=== PATIENT | male | born 1950 | race African-American/Black ===

== ENCOUNTER → 2016-03-04 | Outpatient (CLI) | payer BC ==
[~2016-03-04] MED LIST: ADULT LOW DOSE81 MG PO; ASPIRIN EC325 M1 PO; BYSTOLIC10 MG PO; CHLORTHALIDONE25 MG PO; COZAAR100 MG PO; CRESTOR; CRESTOR40 MG PO; HUMALOG100 UNIT/1; HYDROCODONE-APA1 TA1 PO; IMDUR 30 MG TAB30 M1 PO; LANTUS SUBQ; LOPRESSOR; METHOCARBAMOL500 M2 PO; OMEPRAZOLE40 MG PO; TOPROL XL50 MG PO; TRAMADOL 50 MG50 MG PO; ZOFRAN ODT4 MG PO
== END ==
LOC: CAT 07:41
DX: M51.37 Other intervertebral disc degeneration, lumbosacral region (principal); M51.47 Schmorl's nodes, lumbosacral region

== ENCOUNTER 2017-07-14 18:39 | Inpatient (IN) | payer BC ==
[~2017-07-14] VITALS: Ht 190.5 cm; Wt 98.9 kg
--- NOTE | ~2017-07-14 | 2DMMODE ---
[facility] [address] [place] [address] 2 D/M-MODE ECHOCARDIOGRAM Name: JOBLIZZY STARR Room #: 418-P [facility] IN M.R.#: [id number] Admission: 07/14/17 Attend Phys: Yonatan Tearn, Discharge: Date of : 54 Date of Service: 07/15/17 1151 Report #: [id number] THIS REPORT FOR: //name// APPROVED REPORT Study performed: 07/15/2017 10:27:36 EXAM: Comprehensive 2D, Doppler, and color-flow Echocardiogram Patient Location: Bedside Room #: [facility] Status: routine BSA: 2.19 HR: 72 bpm BP: 119/73 mmHg Other Information Study Quality: Adequate Indications CAD Syncope Chest Pain 2D Dimensions RVDd: 35.71 mm LVEF(%): 68.00 (>50%) IVSd: 10.37 (7-11mm) LVOT Diam: 20.03 (18-24mm) LVDd: 42.80 mm PWd: 9.80 (7-11mm) Ascending Ao: 26.87 (22-36mm) LVDs: 26.71 (25-40mm) Aortic Root: 26.57 mm IVC: 20.00 mm Crowell's LVEF: 68.00 % Volumes Left Atrial Volume (Systole) Single Plane 4CH: 43.41 mL Single Plane 2CH: 35.64 mL LA ESV Index: 19.00 mL/m2 Aortic Valve AoV Peak Kiran.: 1.94 m/s AO Peak Gr.: 15.08 mmHg LVOT Max P.12 mmHg LVOT Max V: 1.74 m/s CHAUNCEY Vmax: 2.82 cm2 Mitral Valve E/A Ratio: 0.7 [facility] [email or web address] [address] 2 D/M-MODE ECHOCARDIOGRAM Name: LIZZY KAISER Room #: 418-P [facility] IN ..#: [id number] Admission: 07/14/17 Attend Phys: Yonatan Teran, Discharge: Date of : 54 Date of Service: 07/15/17 1151 Report #: [id number] MV Decel. Time: 291.24 ms MV E Max Kiran.: 0.70 m/s MV A Kiran.: 0.94 m/s MV PHT: 84.46 ms IVRT: 107.27 ms Pulmonary Valve PV Peak Kiran.: 1.18 m/s PV Peak Gr.: 5.59 mmHg Pulmonary Vein P Vein S: 0.74 m/s P Vein A: 0.30 m/s P Vein D: 0.37 m/s P Vein A Dur.: 107.3 msec P Vein S/D Ratio: 2.00 Tricuspid Valve RAP Estimate: 5.00 mmHg Left Ventricle The left ventricle is normal size. There is normal LV segmental wall motion. There is normal left ventricular wall thickness. The left ventricular systolic function is normal. The left ventricular ejection fraction is within the normal range. LVEF is 65%. Mild diastolic dysfunction is present (impaired relaxation pattern). Right Ventricle The right ventricle is normal size. The right ventricular systolic function is normal. Atria The left atrium size is normal. The right atrium size is normal. Aortic Valve The aortic valve is normal in structure. No aortic regurgitation is present. There is no aortic valvular stenosis. Mitral Valve The mitral valve is normal in structure. There is no mitral valve regurgitation noted. No evidence of mitral valve stenosis. Tricuspid Valve The tricuspid valve is normal in structure. There is no tricuspid valve regurgitation noted. Unable to assess PA pressure. Pulmonic Valve [address] [address] 2 D/M-MODE ECHOCARDIOGRAM Name: JOBLIZZYHARRY Room #: 418-P [facility] IN [facility]#: [id number] Admission: 07/14/17 Attend Phys: Yonatan Teran, Discharge: Date of : 54 Date of Service: 07/15/17 1151 Report #: [id number] The pulmonary valve is normal in structure. There is no pulmonic valvular regurgitation. Great Vessels The aortic root is normal in size. IVC is normal in size and collapses >50% with inspiration. Pericardium There is no pericardial effusion. <Conclusion> The left ventricular systolic function is normal. There is normal LV segmental wall motion. LVEF is 65%. Mild diatolic dysfunction The aortic valve is normal in structure. No aortic regurgitation or stenosis The mitral valve is normal in structure. No mitral valve regurgitation noted. Pulmonary artery pressure could not be reliably ascertained There is no pericardial effusion. <ELECTRONICALLY SIGNED> By: Sabino Barker MD, FACC 07/15/17 1151 1151 1151 Sabino Barker MD, FACC /INF
--- NOTE | ~2017-07-14 | CATHLAB ---
[facility] [address] [place] [address] INVASIVE PROCEDURE REPORT Name: LIZZY KAISER Room #: 201-P ADM IN .R.#: [id number] Admission: 07/14/17 Attend Phys: Yonatan Teran, Discharge: Date of : 54 Date of Service: 07/15/17 1333 Report #: [id number] THIS REPORT FOR: //name// APPROVED REPORT Study performed: 07/15/2017 12:09:20 Patient Details Patient Status: In-Patient Room #: The patient is a 66 year-old male Event Personnel Sabino Barker Internist Medical Doctor Md, Falguni Velasquez, Jeanne Horton Penny, Wes RN Procedures Performed Art Access - R femoral artery* 22344 Initial Mod Sed Same Phys/QHP Gr5y [id number] 28513 Mod Sed Same Phys/QHP Ea 079571 Left Heart Cath w/or w/o Coronaries [id number] LHC FFR [id number] FFR Hemostasis w/ Mynx Indication Abnormal ECG, Non-STEMI (>6 hrs to = 12 hrs) Risk Factors Dysplipidemia , Hypertension, Diabetes Procedure Narrative The patient was brought urgently to the Cardiac Catheterization Laboratory and was prepped and draped in a sterile manner. The was infiltrated with 1% Lidocaine subcutaneous anesthesia. A PINNACLE 6FR Sheath #[id number] sheath was inserted into the RFA^. Coronary angiography was performed using coronary diagnostic catheters. The right coronary system was accessed and visualized with a JR 4 catheter. The left coronary system was accessed and visualized with a JL 4 catheter. The left ventricle was accessed and visualized with a Pigtail catheter. Left ventricular/Aortic Valve gradient assessed via catheter pullback. Left ventriculogram was performed in LOUISE projection. Closure device was deployed with a 6 Fr Mynx. The patient tolerated the procedure well and there were no complications associated with the procedure. There was no hematoma. Intraoperative Conscious Sedation Sedation start time: 12:07 Case end Time: 12:57 [facility] [address] [place] [address] INVASIVE PROCEDURE REPORT Name: LIZZY KAISER Room #: 201-P [facility] IN ..#: [id number] Admission: 07/14/17 Attend Phys: Yonatan Teran, Discharge: Date of : 54 Date of Service: 07/15/17 1333 Report #: [id number] Fentanyl 50 mcg Versed 1.5 mg Fluoro Time: 4.43 minutes Dose: DAP 7066.10 cGycm2 1189 mGy Contrast Type and Amount: Omnipaque 200 ml Coronary Angiography The patient's coronary anatomy is co- dominant. Diagnostic Cath Left Main 50% distal left main tapering LAD The ostium of the LAD exhibited a 90% stenosis. FFR without adenosine 0.84 Mid LAD with 75-80% stenosis, mild distal plaquing Circumflex 40-50% ostial circumflex stenosis. 50% proximal circumflex stenosis OM1 Small OM2 Small with mild scattered plaquing L PDA Mild plaquing Right Coronary Diffusely diseased and "thready" throughout its course Ramus Moderately large ramus branch with a proximal 75% stenosis Left Ventriculography The left ventricular ejection fraction is estimated to be 60-65%. Left ventricular wall motion abnormalities are not present. There is no mitral insufficiency. Hemodynamics The aortic pressure is 132/78 mmHg with a mean of 93 mmHg. The left ventricular pressure is 157/1 mmHg with a mean of mmHg. The left ventricular end diastolic pressure is 16 mmHg. Conclusion 1. Normal global and regional systolic function. EF 65% 2. LM distal 50% stenosis 3. Severe ostial and mid LAD disease (Osteal LAD FFR 0.84) 4. Moderate circumflex stenoses 5. Severe, diffusely diseased RCA Recommendations [facility] [address] [place] [address] INVASIVE PROCEDURE REPORT Name: LIZZY KAISER Room #: 201-P [facility] IN ..#: [id number] Admission: 07/14/17 Attend Phys: Yonatan Teran, Discharge: Date of : 54 Date of Service: 07/15/17 1333 Report #: [id number] Cardiac Rehabilitation Referral CABG <ELECTRONICALLY SIGNED> By: Sabino Barker MD, [facility] 07/15/17 1333 1333 133 Sabino Barker MD, FAC /INF
--- NOTE | ~2017-07-14 | HC ---
[facility] [place] [address] CONSULTATION Name: LIZZY KAISER Room #: 236-P [facility] IN M.R.#: [id number] Admission: 07/14/17 Attend Phys: Keven Patrick Discharge: Date of : 54 Report #: [id number] THIS REPORT FOR: //name// CC: Ramses Teran REASON FOR CONSULTATION: Chest and arm pain, history of syncope. HISTORY OF PRESENT ILLNESS: The patient is a 66-year-old gentleman with history of longstanding diabetes. He has known coronary disease by angiography in November 2012 with chronic occlusion of the distal right coronary with collateralization and mild to moderate disease in the left system including an approximately distal 30% left main stenosis. He had been out of town in [place] working most of the week. Yesterday he had nothing to eat or drink most of the day. I got home and had small Fátima and something to eat. He remembered not taking his medicines which he then took last evening, which included losartan, Imdur and 10 mg of Bystolic. About an hour or so after this, he became very lightheaded and syncopal. Paramedics were summoned and initially his blood pressure was okay, although in the ambulance to the hospital, his blood pressure dropped into the 40s and he had recurrent syncope. He has had 5 or 6 syncopal episodes in the past, each were similar to this. Prior to the syncopal episode, he developed left arm achiness. He has had a terrible time trying to decide or know whether this arm pain is related to his severe back pain and degenerative disk disease or whether this was angina. He has had the same symptom while walking his dog and relieved by rest. He denies heart failure symptoms including orthopnea, paroxysmal nocturnal dyspnea, or lower extremity edema. No history of palpitations. ALLERGIES: He has a possible allergy to IODINE, although this is not entirely clear. MEDICATIONS: Include omeprazole, tramadol, Bystolic 10 mg daily, insulin 70 units at night, rosuvastatin 40 mg daily, losartan 100 mg daily, Imdur 30 mg daily and chlorthalidone 25 mg daily. PAST MEDICAL HISTORY AND MEDICAL RECORDS: Include history of hypertension, dyslipidemia, diabetes, moderate coronary artery disease. SOCIAL HISTORY: He is . 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 FAMILY HISTORY: Notable for a mother with coronary artery disease. REVIEW OF SYSTEMS: All systems negative except as that noted above. PHYSICAL EXAMINATION: GENERAL: Reveals a pleasant [place] [address] CONSULTATION Name: LIZZY KAISER Room #: 236-P [facility] IN M.R.#: [id number] Admission: 07/14/17 Attend Phys: Keven Patrick Discharge: Date of : 54 Report #: [id number] VITAL SIGNS: Blood pressure is 119/73, heart rate is 79 and regular. He is afebrile. HEENT: There are neither xanthelasma, subcutaneous xanthomata, oral mucosal or digital cyanosis or kyphoscoliosis present. CHEST: Clear to auscultation and percussion. CARDIOVASCULAR: Regular rate and rhythm with normal S1, S2. No murmurs, rubs. ABDOMEN: Soft and nontender. EXTREMITIES: Without cyanosis, clubbing or edema. Radial pulses are 2+. NEUROLOGIC: He is alert with a nonfocal exam. LABORATORY DATA: Sodium is 139, potassium 3.8, creatinine 1.2, troponin 0.13, LDL 97. Tox screen notable for marijuana. White count 9.0, hemoglobin 13, hematocrit 41, platelet count 225. CT angiography of the chest demonstrated no pulmonary emboli. Head CT unremarkable. Chest x-ray normal. EKG, sinus rhythm with nonspecific T-wave abnormality. IMPRESSION: 1. Syncope, likely multifactorial related to hypotensive effects of medications, alcohol use and being mildly volume depleted from being n.p.o. most of the day. 2. Left arm pain, possibly angina. 3. Diabetes. 4. Hypertension. 5. Moderate coronary disease by remote angiography in 2012. 6. Dyslipidemia. 7. Prior tobacco dependency. RECOMMENDATIONS: 1. Continued aggressive risk factor modification. 2. Maintain hydration status. 3. Stress testing versus coronary angiography. My suspicion is that his left arm pain is related to angina, possibly from progression of his underlying coronary disease. After a thorough discussion of the procedure, its risks and alternatives and after answering his questions, he is agreeable to proceeding. <ELECTRONICALLY SIGNED> By: Sabino Barker MD, [facility] 07/19/17 0800 1032 1447 Sabino Barker MD, FACC /nt
--- NOTE | ~2017-07-14 | EKG ---
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: YULISSA : 1950 Requested By: Keven Patrick Order Number: [id number] MD: Sabino Barker Measurements Intervals [place] Rate: 78 P: 29 PA: 141 QRS: 6 QRSD: 78 T: 54 QT: 388 QTc: 442 Interpretive Statements Sinus rhythm Abnormal R-wave progression, early transition Minimal ST elevation, consider pericarditis Compared to ECG 07/18/2017 15:56:[address] elevation is now present Electronically Signed On 07-19-2017 7:53:24 CDT by Sabino Barker [email or web address] <ELECTRONICALLY SIGNED> By: Sabino Barker MD, [facility] 07/19/17 0753 0611 0611 Sabino Barker MD, [facility] /EPI
--- NOTE | ~2017-07-14 | HC ---
[facility] [place] [address] CONSULTATION Name: LIZZY KAISER Room #: 201-P [facility] IN M.R.#: [id number] Admission: 07/14/17 Attend Phys: Yonatan Teran MD Discharge: Date of : 54 Report #: [id number] THIS REPORT FOR: //name// CC: Ramses Teran DATE OF SERVICE: 07/16/2017 REASON FOR CONSULTATION: I am asked to see this patient at the request of Dr. Barker for multivessel coronary artery disease and left main disease for evaluation for coronary artery bypass grafting. HISTORY OF PRESENT ILLNESS: The patient is a 66-year-old male who has presented to the Emergency Room after experiencing left-sided chest pain radiating to his jaw and to his left arm. He has had multiple episodes of this in the recent past. His symptoms have been associated with diaphoresis, nausea and headache. He presented to the Emergency Room and was found to have an abnormal EKG, slight elevation in his cardiac enzymes consistent with non-ST segment elevation CT. Further evaluation with echocardiography demonstrated normal LV systolic function and no valvular pathology. Left heart catheterization demonstrated important distal left main coronary artery disease as well as multivessel disease. I am asked to see this patient and consider coronary artery bypass grafting. PAST MEDICAL HISTORY: 1. Hypertension. 2. Diabetes mellitus, insulin-dependent. 3. Hypercholesterolemia. CURRENT HOME MEDICATIONS: Include methocarbamol, omeprazole, tramadol, nebivolol 10 mg daily, insulin Lantus and Humalog, Crestor, Cozaar, aspirin, Toprol-XL, isosorbide. ALLERGIES: IODINE. SOCIAL HISTORY: The patient is and lives with his . He has 2 children, a daughter and a son. He denies significant alcohol use. He does use some recreational marijuana. He does not use illicit drugs. He is a former smoker but quit in 1996. PAST SURGICAL HISTORY: Includes an implantation of an implantable nerve stimulator in his back. REVIEW OF SYSTEMS: A 14-point review of system was performed and is otherwise except for HPI is unremarkable. [address] [address] CONSULTATION Name: JOBLIZZY STARR Room #: 201-P [facility] IN .R.#: [id number] Admission: 07/14/17 Attend Phys: Yonatan Teran MD Discharge: Date of : 54 Report #: [id number] PHYSICAL EXAMINATION: GENERAL: Reveals a well-developed, well-nourished, male in no active distress. HEENT: Unremarkable. NECK: Shows no JVD. There are no bruits noted. HEART: Shows regular rhythm and rate without murmur. LUNGS: Clear and equal bilaterally. ABDOMEN: Soft and nontender. EXTREMITIES: Show no edema. Pedal pulses are present. NEUROLOGIC: Shows no focal abnormalities. SKIN: Shows no lesions present. LABORATORY DATA: Left heart catheterization has been reviewed and has been reviewed with the patient. EKG and chest x-ray are noted. Carotid ultrasound has been performed, but the result is pending at this time. IMPRESSION AND PLAN: A 66-year-old diabetic male with multiple medical problems, now presents with non-ST segment elevation myocardial infarction, has important distal left main and multivessel coronary artery disease. I agree that coronary artery bypass grafting would be appropriate for him. I anticipate grafts to the LAD, to the ramus intermedius and to the obtuse marginal vessel. The right coronary artery, though significantly diseased is not a graftable vessel as it is too small and too diffusely diseased. Risks, benefits, alternatives of coronary artery bypass grafting were discussed with the patient. He appears to understand and desires to proceed or plans will be for tomorrow morning if an asset protection assistant is available. By: [id number] /nt
--- NOTE | ~2017-07-14 | EKG ---
[address] [employer] [place] [place] [address] ELECTROCARDIOGRAM REPORT Name: JOBLIZZY STARR Room #: 201-P ADM IN M.R.#: [id number] Admission: 07/14/17 Attend Phys: Yonatan Teran MD Discharge: Date of : 54 Report #: [id number] THIS REPORT FOR: //name// [facility] Test Date: 2017-07-15 Test Time: 06:35:56 Pat Name: LIZZY KAISER Department: Room: 418 P Gender: M Advanced Practice Psychiatric Nurse: [facility] : 1950 Requested By: Keya Haley Order Number: [id number] MD: Sabino Barker Measurements Intervals [place] Rate: 75 P: 43 TN: 131 QRS: 8 QRSD: 85 T: 3 QT: 384 QTc: 429 Interpretive Statements Sinus rhythm Borderline T abnormalities Compared to ECG 12/28/2012 18:25:45 No significant change was found Electronically Signed On 07-16-2017 10:07:59 CDT by Sabino Barker [email or web address] <ELECTRONICALLY SIGNED> By: Sabino Barker MD, [facility] 07/16/[address] [facility] 0635 Sabino Barker MD, [facility] /EPI
--- NOTE | ~2017-07-14 | EKG ---
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
--- NOTE | ~2017-07-14 | HC ---
[facility] [place] [address] CONSULTATION Name: LIZZY KAISER Room #: 218-P [facility] IN M.R.#: [id number] Admission: 07/14/17 Attend Phys: Keven Patrick Discharge: Date of : 54 Report #: [id number] THIS REPORT FOR: //name// CC: Keven Bell DATE OF SERVICE: 07/21/2017 PERSONAL PHYSICIAN: Ramses Bell MD. CHIEF COMPLAINT: Right axillary wound. HISTORY OF PRESENT ILLNESS: This is a 66-year-old black male with a history of diabetes, who recently was admitted to the Emergency Department for chest pain and now status post coronary artery bypass grafting. Supposedly, during the surgery or right after the surgery, the patient states that he thinks that he had a rubbing from what he describes as a physical therapy strap assistance felt underneath his right arm in the axillary region. The patient now mentioned to Dr. Barker this morning that he was having pain in that area with some mild burning. We were asked to see him for care of the wound. The patient states that there is also some mild itchiness noted associated with this. The patient denies any other associated wounds. The patient states he did have a wound that he had very difficult time healing in the past which was a spider bite. PAST MEDICAL HISTORY: Significant for longstanding diabetes, dyslipidemia, hypertension, coronary artery disease. CURRENT MEDICATIONS: Multiple, I reviewed in the patient's medication list. DRUG ALLERGIES: IODINE. SOCIAL HISTORY: The patient has a very remote history of smoker, does not drink alcohol, is . FAMILY HISTORY: Significant for heart disease. REVIEW OF SYSTEMS: CONSTITUTIONAL: The patient denies fevers or chills. NEUROLOGIC: The patient denies numbness, tingling in arms or legs. However, after review of the patient's chart, the patient had admission diagnosis of syncope. The patient denies any weakness at this time. EYES: No complaints. ENT: No complaints. CARDIAC: The patient is status post cardiac bypass but denies chest pain at this time. The patient denies palpitations, peripheral edema. RESPIRATORY: The patient denies shortness breath, cough or wheezes. [facility] [address] [place] [address] CONSULTATION Name: LIZZY KAISER Room #: 218-P [facility] IN ..#: [id number] Admission: 07/14/17 Attend Phys: Keven Patrick Discharge: Date of : 54 Report #: [id number] GASTROINTESTINAL: The patient denies nausea, vomiting, abdominal pain. GENITOURINARY: The patient denies urgency or frequency. MUSCULOSKELETAL: No complaints. SKIN: The patient has a friction induced wound underneath his right axillary region. PHYSICAL EXAMINATION: VITAL SIGNS: Temperature 36.7, pulse 74, respirations 16, BP 96/72. GENERAL: The patient is alert and oriented x 3, pleasant black male, who is sitting up in the chair in no acute distress. HEENT: Normocephalic, atraumatic. Mucous membranes moist. Pupils are round. Sclerae white. NECK: Supple, nontender, without JVD. LUNGS: Clear. CHEST: Shows a midline sternal incision, which is clean with surgical glue covering the entire incision. No signs of infection or drainage. HEART: Regular. ABDOMEN: Soft, nontender. EXTREMITIES: The patient moves all extremities without difficulty. Distal neurovascular was intact. Left forearm shows a vein harvest site, which is clean, dry and intact without signs of erythema, warmth or cellulitis. Evaluation in the right axillary region reveals a superficial partial thickness abrasion without signs of erythema, warmth or infection. There is no drainage. There is no odor, no tunneling. It is somewhat tender to palpation. There are areas of denuded epidermis noted. NEUROLOGIC: Cranial nerves 2-12 grossly intact. Motor and sensory grossly intact. LABORATORY DATA: White count 16.4, hemoglobin 12.0, albumin 3.7. WOUND CARE COURSE: At this time, I spoke to the patient. Hydrocortisone was already been ordered for this, which we will continue that for the itching, but we will add morphine, Silvadene cream to allow for the healing and pain relief. This will be placed twice daily and cover with Xeroform and ABD. The patient was encouraged to continue to maximize his oral protein supplementation for continued healing. The patient was given a prescription for morphine, Silvadene compound to have it discharge. The patient was encouraged to follow up in my office in 10-14 days if the wound persisted. IMPRESSION: 1. Superficial partial thickness abrasion to the right axillary region, actual etiology unclear. 2. Diabetes mellitus. 3. Coronary artery disease, now status post cardiac bypass. 4. Generalized debility. [address] [address] CONSULTATION Name: LIZZY KAISER Room #: 218-P [facility] IN M.R.#: [id number] Admission: 07/14/17 Attend Phys: Keven Patrick Discharge: Date of : 54 Report #: [id number] PLAN: Described in length as above. I appreciate the ability to consult. We will continue to follow the patient, and we will follow him as an outpatient if necessary. By: [id number] [id number] Terry Mcnulty MD /nt
--- NOTE | ~2017-07-14 | EKG ---
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1950 Requested By: Jourdan Gonzales Order Number: [id number] MD: Sabino Barker Measurements Intervals [place] Rate: 59 P: 24 AL: 138 QRS: -4 QRSD: 81 T: 1 QT: 411 QTc: 408 Interpretive Statements Sinus bradycardia Nonspecific T wave abnormality Compared to ECG 12/28/2012 18:25:45 Nonspecific T wave abnormality is now present Electronically Signed On 07-16-2017 10:05:19 CDT by Sabino Barker [email or web address] <ELECTRONICALLY SIGNED> By: Sabino Barker MD, [facility] 07/16/17 1005 46 46 Sabino Barker MD, [facility] /EPI
[2017-07-14 18:40] VITALS: BP 126/89
[2017-07-14 19:02] LABS: ABSOLUTE NEUTROPHILS 5.6 thou/uL (1.4-8.2); BASOPHILS 0.7 % (0.0-2.0); EOSINOPHILS 1.4 % (0.0-3.0); HEMATOCRIT 41.6 % (42.0-52.0); HEMOGLOBIN 13.8 gm/dL (14.0-18.0); LYMPHOCYTES 24.4 % (24.0-44.0); MCH 29.1 pg (26.0-34.0); MCHC 33.2 g/dL (28.0-37.0); MCV 87.7 fL (80.0-100.0); MONOCYTES 11.9 % (1.0-8.0); PLATELET COUNT 225 thou/uL (150-400); POLYS 61.6 % (36.0-66.0); RBC 4.74 mil/uL (4.50-6.00); RDW 14.7 % (10.5-14.5)
[2017-07-14 19:10] LABS: ANION GAP 7 mmol/L (7-16); BUN 17 mg/dL (7-18); CALCIUM 8.9 mg/dL (8.5-10.1); CHLORIDE 105 mmol/L (98-107); CO2 27 mmol/L (21-32); CREATININE 1.2 mg/dL (0.7-1.3); GLUCOSE 117 mg/dL (74-106); POTASSIUM 3.8 mmol/L (3.5-5.1); SODIUM 139 mmol/L (136-145)
[2017-07-14 19:18] LABS: ALBUMIN 3.5 g/dL (3.4-5.0); LIPASE 72 U/L (73-393); SGOT 18 U/L (15-37); SGPT 32 U/L (30-65); TOTAL BILIRUBIN 0.6 mg/dL (<0.1-1.0); TROPONIN-I < 0.04 ng/mL (<0.06)
[2017-07-14 20:19] LABS: URINE BILIRUBIN NEGATIVE (Negative); URINE BLOOD NEGATIVE (Negative); URINE CLARITY CLEAR; URINE COLOR YELLOW; URINE GLUCOSE-RANDOM* NEGATIVE (Negative); URINE KETONES NEGATIVE (Negative); URINE LEUKOCYTES-REFLEX NEGATIVE (Negative); URINE NITRITE-REFLEX NEGATIVE (Negative); URINE PROTEIN (DIPSTICK) TRACE (Negative)
[2017-07-14 20:28] LABS: AMP/METHAMP Negative (Negative); BARBITURATES Negative (Negative); BENZODIAZEPINES Negative (Negative); COCAINE Negative (Negative); METHADONE Negative (Negative); OPIATES Negative (Negative); PCP Negative (Negative)
[2017-07-14 22:45] VITALS: BP 129/81
[2017-07-14 23:00] VITALS: BP 122/79; BP 167/89
[2017-07-15 05:17] LABS: CHOLESTEROL 153 mg/dL (<200); HDL CHOLESTEROL 49 mg/dL (>40); LDL CHOLESTEROL 97 mg/dL (<100); TC:HDL 3.1 Ratio (Not establshd); TRIGLYCERIDE 37 mg/dL (<150); VLDL 7 mg/dL (<40)
[2017-07-15 05:19] LABS: SERUM ASSESSMENT Clear
[2017-07-15 05:43] VITALS: BP 129/68
[2017-07-15 07:04] VITALS: BP 119/73
[2017-07-15] MEDS ORDERED: ATORVASTATIN CA40 MG PO (14:02)
[2017-07-15] MEDS ORDERED: TENORMIN50 MG PO (14:02)
[2017-07-15] MEDS ORDERED: VITAMIN D-32000 UNIT PO (14:03)
[2017-07-15] MEDS ORDERED: BYSTOLIC10 MG PO (14:03)
[2017-07-15 16:06] LABS: GLYCOHEMOGLOBIN (HGB A1C) 7.8 % (4.8-5.6)
[2017-07-15 17:14] VITALS: BP 155/100
[2017-07-15 19:00] VITALS: BP 153/75
[2017-07-16 00:06] VITALS: BP 145/80
[2017-07-16 04:17] VITALS: BP 142/77
[2017-07-16 04:38] LABS: CALCIUM 9.1 mg/dL (8.5-10.1); POTASSIUM 4.2 mmol/L (3.5-5.1)
[2017-07-16 08:39] VITALS: BP 141/98
[2017-07-16 12:14] VITALS: BP 146/90
[2017-07-16 15:48] VITALS: BP 144/83
[2017-07-16 17:09] LABS: URINE BILIRUBIN NEGATIVE (Negative); URINE BLOOD NEGATIVE (Negative); URINE CLARITY CLEAR; URINE COLOR YELLOW; URINE GLUCOSE-RANDOM* NEGATIVE (Negative); URINE KETONES NEGATIVE (Negative); URINE LEUKOCYTES-REFLEX NEGATIVE (Negative); URINE NITRITE-REFLEX NEGATIVE (Negative); URINE PROTEIN (DIPSTICK) NEGATIVE (Negative); URINE SPECIFIC GRAVITY 1.015 (1.005-1.035)
[2017-07-16 19:47] VITALS: BP 137/79
[2017-07-17] VITALS (8 sets, daily range): BP systolic 110–130; BP diastolic 71–82
[2017-07-17 04:13] LABS: CALCIUM 8.6 mg/dL (8.5-10.1); CREATININE 0.9 mg/dL (0.7-1.3); POTASSIUM 3.7 mmol/L (3.5-5.1)
[2017-07-17 05:35] LABS: HEMATOCRIT 42.3 % (42.0-52.0); HEMOGLOBIN 13.7 gm/dL (14.0-18.0); MCH 28.5 pg (26.0-34.0); MCHC 32.4 g/dL (28.0-37.0); RBC 4.8 mil/uL (4.50-6.00); RDW 14.6 % (10.5-14.5); WBC 11.5 thou/uL (4.0-11.0)
[2017-07-17 16:00] LABS: CALCIUM 9.2 mg/dL (8.5-10.1); CREATININE 0.9 mg/dL (0.7-1.3); POTASSIUM 3.6 mmol/L (3.5-5.1)
[2017-07-17 16:13] LABS: ALBUMIN 3.7 g/dL (3.4-5.0); TOTAL BILIRUBIN 0.6 mg/dL (<0.1-1.0); TOTAL PROTEIN 7.5 g/dL (6.4-8.2)
[2017-07-17 16:17] LABS: INR 1.1; PROTIME 10.7 Seconds (9.3-11.4)
[2017-07-17 16:18] LABS: APTT 41.7 Seconds (24.5-32.8)
[2017-07-17 16:26] LABS: ABSOLUTE NEUTROPHILS 5.3 thou/uL (1.4-8.2); BASOPHILS 0.9 % (0.0-2.0); EOSINOPHILS 0.9 % (0.0-3.0); HEMATOCRIT 45.2 % (42.0-52.0); HEMOGLOBIN 15.3 gm/dL (14.0-18.0); LYMPHOCYTES 38.7 % (24.0-44.0); MCH 29.4 pg (26.0-34.0); MCHC 33.8 g/dL (28.0-37.0); MCV 86.8 fL (80.0-100.0); MONOCYTES 9.7 % (1.0-8.0); PLATELET COUNT 253 thou/uL (150-400); POLYS 49.8 % (36.0-66.0); RBC 5.21 mil/uL (4.50-6.00); RDW 14.9 % (10.5-14.5); WBC 10.6 thou/uL (4.0-11.0)
[2017-07-18 04:10] LABS: GLYCOHEMOGLOBIN (HGB A1C) 7.7 % (4.8-5.6)
[2017-07-18 04:23] VITALS: BP 126/70
[2017-07-18 04:42] LABS: ABSOLUTE NEUTROPHILS 5.1 thou/uL (1.4-8.2); BASOPHILS 0.9 % (0.0-2.0); EOSINOPHILS 1.6 % (0.0-3.0); HEMATOCRIT 44.6 % (42.0-52.0); HEMOGLOBIN 14.8 gm/dL (14.0-18.0); MCH 28.9 pg (26.0-34.0); MCHC 33.2 g/dL (28.0-37.0); MCV 87.2 fL (80.0-100.0); MONOCYTES 10.9 % (1.0-8.0); PLATELET COUNT 249 thou/uL (150-400); POLYS 52.6 % (36.0-66.0); RBC 5.11 mil/uL (4.50-6.00); RDW 14.9 % (10.5-14.5); WBC 9.7 thou/uL (4.0-11.0)
[2017-07-18 04:48] LABS: CALCIUM 9.1 mg/dL (8.5-10.1); POTASSIUM 3.9 mmol/L (3.5-5.1)
[2017-07-18 12:53] LABS: HEMATOCRIT 30.2 % (42.0-52.0); MCH 29.2 pg (26.0-34.0); MCHC 33.7 g/dL (28.0-37.0); MCV 86.4 fL (80.0-100.0); RBC 3.5 mil/uL (4.50-6.00); RDW 14.6 % (10.5-14.5)
[2017-07-18 13:07] LABS: HEMOGLOBIN 10.2 gm/dL (14.0-18.0)
[2017-07-18 13:20] LABS: APTT 24.4 Seconds (24.5-32.8); FIBRINOGEN 173.7 mg/dL (210-360); INR 1.5; PROTIME 15.3 Seconds (9.3-11.4)
[2017-07-18 13:53] LABS: POC BE 2 mmol/L (-2.0 to +3.0); POC CA IONIZED 4.6 mg/dL (4.5-5.3); POC GLUCOSE 120 mg/dL (70-99); POC HCO3 26.9 mmol/L (22.0-26.0); POC HEMOGLOBIN 14.3 g/dL (14.0-18.0); POC POTASSIUM 3.7 mmol/L (3.5-5.1); POC SODIUM 137 mmol/L (136-145); POC pCO2 42.3 mmHg (35.0-45.0); POC pH 7.411 (7.360-7.450)
[2017-07-18 13:53] LABS: POC BE 2 mmol/L (-2.0 to +3.0); POC GLUCOSE 109 mg/dL (70-99); POC HCO3 25.9 mmol/L (22.0-26.0); POC HEMOGLOBIN 11.6 g/dL (14.0-18.0); POC SODIUM 135 mmol/L (136-145); POC pCO2 39.6 mmHg (35.0-45.0); POC pH 7.424 (7.360-7.450)
[2017-07-18 13:53] LABS: POC BE 1 mmol/L (-2.0 to +3.0); POC CA IONIZED 4.2 mg/dL (4.5-5.3); POC GLUCOSE 113 mg/dL (70-99); POC HCO3 25.2 mmol/L (22.0-26.0); POC HEMOGLOBIN 11.6 g/dL (14.0-18.0); POC POTASSIUM 3.9 mmol/L (3.5-5.1); POC SODIUM 137 mmol/L (136-145); POC pCO2 37.9 mmHg (35.0-45.0); POC pH 7.432 (7.360-7.450)
[2017-07-18 13:53] LABS: POC BE 3 mmol/L (-2.0 to +3.0); POC CA IONIZED 5.6 mg/dL (4.5-5.3); POC GLUCOSE 137 mg/dL (70-99); POC HCO3 27.2 mmol/L (22.0-26.0); POC HEMOGLOBIN 9.5 g/dL (14.0-18.0); POC POTASSIUM 3.8 mmol/L (3.5-5.1); POC SODIUM 133 mmol/L (136-145); POC pCO2 40.5 mmHg (35.0-45.0); POC pH 7.435 (7.360-7.450)
[2017-07-18 13:53] LABS: POC BE 4 mmol/L (-2.0 to +3.0); POC CA IONIZED 4.6 mg/dL (4.5-5.3); POC GLUCOSE 89 mg/dL (70-99); POC HCO3 27.7 mmol/L (22.0-26.0); POC HEMOGLOBIN 14.6 g/dL (14.0-18.0); POC POTASSIUM 3.9 mmol/L (3.5-5.1); POC SODIUM 137 mmol/L (136-145); POC pCO2 38.7 mmHg (35.0-45.0); POC pH 7.463 (7.360-7.450)
[2017-07-18 13:53] LABS: POC BE 1 mmol/L (-2.0 to +3.0); POC CA IONIZED 4.2 mg/dL (4.5-5.3); POC GLUCOSE 119 mg/dL (70-99); POC HCO3 26.6 mmol/L (22.0-26.0); POC HEMOGLOBIN 10.5 g/dL (14.0-18.0); POC POTASSIUM 4.1 mmol/L (3.5-5.1); POC SODIUM 136 mmol/L (136-145); POC pCO2 45.4 mmHg (35.0-45.0); POC pH 7.375 (7.360-7.450)
[2017-07-18 14:07] VITALS: BP 116/70
[2017-07-18 14:15] VITALS: BP 114/68
[2017-07-18 14:26] LABS: HEMATOCRIT 39.9 % (42.0-52.0); MCHC 33.4 g/dL (28.0-37.0); MCV 86.8 fL (80.0-100.0); RBC 4.6 mil/uL (4.50-6.00); RDW 14.4 % (10.5-14.5); WBC 23.9 thou/uL (4.0-11.0)
[2017-07-18 14:30] VITALS: BP 114/80
[2017-07-18 14:37] LABS: HEMOGLOBIN 13.3 gm/dL (14.0-18.0)
[2017-07-18 14:40] LABS: CALCIUM 9.3 mg/dL (8.5-10.1); CREATININE 0.9 mg/dL (0.7-1.3); POTASSIUM 4.3 mmol/L (3.5-5.1)
[2017-07-18 14:41] LABS: MAGNESIUM 2.1 mg/dL (1.8-2.4)
[2017-07-18 14:43] LABS: APTT 26.3 Seconds (24.5-32.8); INR 1.2; PROTIME 12.1 Seconds (9.3-11.4)
[2017-07-18 15:24] LABS: BE(vivo) -3.4 mmol/L (-2 to +3); HCO3 21.5 mmol/L (22.0-26.0); PCO2 38.6 mmHg (35.0-45.0); PO2 130.7 mmHg (80.0-100.0); pH 7.364 (7.360-7.450); sO2 98.5 % (92.0-98.0)
[2017-07-18 16:14] LABS: BE(vivo) -4.1 mmol/L (-2 to +3); HCO3 20.6 mmol/L (22.0-26.0); PCO2 36.5 mmHg (35.0-45.0); pH 7.369 (7.360-7.450); sO2 96.4 % (92.0-98.0)
[2017-07-18 16:45] LABS: BE(vivo) -2.1 mmol/L (-2 to +3); HCO3 22.4 mmol/L (22.0-26.0); PCO2 37.6 mmHg (35.0-45.0); PO2 119.8 mmHg (80.0-100.0); pH 7.393 (7.360-7.450); sO2 98.3 % (92.0-98.0)
[2017-07-18 21:31] LABS: BE(vivo) -4.6 mmol/L (-2 to +3); HCO3 20.4 mmol/L (22.0-26.0); PCO2 37.3 mmHg (35.0-45.0); PO2 83.4 mmHg (80.0-100.0); pH 7.355 (7.360-7.450); sO2 95.9 % (92.0-98.0)
[2017-07-19] VITALS (22 sets, daily range): BP systolic 93–168; BP diastolic 43–87
[2017-07-19 06:22] LABS: HEMATOCRIT 35.9 % (42.0-52.0); HEMOGLOBIN 12.1 gm/dL (14.0-18.0); MCHC 33.8 g/dL (28.0-37.0); MCV 85.9 fL (80.0-100.0); PLATELET COUNT 153 thou/uL (150-400); RBC 4.18 mil/uL (4.50-6.00); RDW 14.7 % (10.5-14.5)
[2017-07-19 06:30] LABS: CALCIUM 8.4 mg/dL (8.5-10.1); CREATININE 0.8 mg/dL (0.7-1.3); MAGNESIUM 1.9 mg/dL (1.8-2.4); POTASSIUM 3.7 mmol/L (3.5-5.1)
[2017-07-19 06:31] LABS: INR 1.3; PROTIME 12.9 Seconds (9.3-11.4)
[2017-07-19 07:22] LABS: ABSOLUTE NEUTROPHILS 12.6 thou/uL (1.4-8.2)
[2017-07-19 07:23] LABS: ANISOCYTOSIS SLIGHT; POIKILOCYTOSIS SLIGHT
[2017-07-20] VITALS (24 sets, daily range): BP systolic 88–131; BP diastolic 51–84
[2017-07-20 05:02] LABS: HEMOGLOBIN 12.3 gm/dL (14.0-18.0); MCH 28.7 pg (26.0-34.0); MCHC 33.2 g/dL (28.0-37.0); MCV 86.5 fL (80.0-100.0); PLATELET COUNT 144 thou/uL (150-400); RBC 4.27 mil/uL (4.50-6.00); RDW 14.6 % (10.5-14.5); WBC 18.7 thou/uL (4.0-11.0)
[2017-07-20 05:10] LABS: CALCIUM 8.4 mg/dL (8.5-10.1); CREATININE 1.1 mg/dL (0.7-1.3); POTASSIUM 4.5 mmol/L (3.5-5.1)
[2017-07-20 08:19] LABS: ABSOLUTE NEUTROPHILS 15.1 thou/uL (1.4-8.2)
[2017-07-20 08:20] LABS: ANISOCYTOSIS 1+; OVALOCYTES 1+
[2017-07-21 00:21] VITALS: BP 98/65
[2017-07-21 04:09] LABS: HEMATOCRIT 35.8 % (42.0-52.0); MCH 28.8 pg (26.0-34.0); MCHC 33.4 g/dL (28.0-37.0); MCV 86.2 fL (80.0-100.0); PLATELET COUNT 171 thou/uL (150-400); RBC 4.15 mil/uL (4.50-6.00); RDW 14.3 % (10.5-14.5); WBC 16.4 thou/uL (4.0-11.0)
[2017-07-21 04:23] LABS: CALCIUM 8.5 mg/dL (8.5-10.1); CREATININE 1.1 mg/dL (0.7-1.3); POTASSIUM 4.3 mmol/L (3.5-5.1)
[2017-07-21 04:51] VITALS: BP 117/66
[2017-07-21 05:22] LABS: ABSOLUTE NEUTROPHILS 13.4 thou/uL (1.4-8.2)
[2017-07-21 07:50] VITALS: BP 105/74
[2017-07-21 11:50] VITALS: BP 96/72
[2017-07-21 15:25] VITALS: BP 98/67
[2017-07-21 20:19] VITALS: BP 121/78
[2017-07-22 03:26] LABS: HEMATOCRIT 36.3 % (42.0-52.0); MCH 28.7 pg (26.0-34.0); RBC 4.18 mil/uL (4.50-6.00); WBC 14.2 thou/uL (4.0-11.0)
[2017-07-22 03:30] LABS: CALCIUM 8.6 mg/dL (8.5-10.1); POTASSIUM 4.1 mmol/L (3.5-5.1)
[2017-07-22 03:37] LABS: PLATELET COUNT 246 thou/uL (150-400)
[2017-07-22 04:45] VITALS: BP 116/77
[2017-07-22 05:21] LABS: ABSOLUTE NEUTROPHILS 9.4 thou/uL (1.4-8.2)
[2017-07-22 07:34] VITALS: BP 120/74
[2017-07-22 11:44] VITALS: BP 99/57
[2017-07-22] MEDS ORDERED: COLACE 100 MG100 MG PO (12:53)
[2017-07-22] MEDS ORDERED: PACERONE 200 M200 M1 PO (12:53)
[2017-07-22] MEDS ORDERED: A AND D OINTM42.5 GM TOP (12:53)
[2017-07-22] MEDS ORDERED: COZAAR100 MG PO (12:53)
[2017-07-22] MEDS ORDERED: SENNA8.6 MG PO (12:53)
[2017-07-22] MEDS ORDERED: LANTUS SUBQ (12:53)
[2017-07-22] MEDS ORDERED: HYDROCODON-ACE1 EAC7 PO (12:53)
== END 2017-07-22 14:32 | disposition home or self-care (01) | DRG 233 ==
LOC: ER 18:39 → 2N 21:04 → EROBS 21:04 → ICU 21:04 → 4E 23:00 → 2N 07-15 13:30 → TBA 07-18 11:30 → ICU 07-18 14:07 → 2N 07-20 22:20
PROVIDERS: Family Medicine; Hospitalist; Internal Medicine; Nurse Practitioner Acute Care; Physician Assistant; Thoracic Surgery (Cardiothoracic Vascular Surgery)
PROC: B2151ZZ Fluoroscopy of Left Heart using Low Osmolar Contrast (ICD-10-PCS; principal; 2017-07-15)
PROC: 4A023N7 Measurement of Cardiac Sampling and Pressure, Left Heart, Percutaneous Approach (ICD-10-PCS; principal; 2017-07-15)
PROC: B2111ZZ Fluoroscopy of Multiple Coronary Arteries using Low Osmolar Contrast (ICD-10-PCS; principal; 2017-07-15)
PROC: 06BQ4ZZ Excision of Left Saphenous Vein, Percutaneous Endoscopic Approach (ICD-10-PCS; 2017-07-18)
PROC: 02100Z9 Bypass Coronary Artery, One Artery from Left Internal Mammary, Open Approach (ICD-10-PCS; 2017-07-18)
PROC: 03BC0ZZ Excision of Left Radial Artery, Open Approach (ICD-10-PCS; 2017-07-18)
PROC: 02100AW Bypass Coronary Artery, One Artery from Aorta with Autologous Arterial Tissue, Open Approach (ICD-10-PCS; 2017-07-18)
PROC: 021009W Bypass Coronary Artery, One Artery from Aorta with Autologous Venous Tissue, Open Approach (ICD-10-PCS; 2017-07-18)
DX: I21.4 Non-ST elevation (NSTEMI) myocardial infarction (principal); N17.0 Acute kidney failure with tubular necrosis; I31.9 Disease of pericardium, unspecified; D62 Acute posthemorrhagic anemia; I25.119 Atherosclerotic heart disease of native coronary artery with unspecified angina pectoris; F12.10 Cannabis abuse, uncomplicated; E78.5 Hyperlipidemia, unspecified; R53.81 Other malaise; E11.9 Type 2 diabetes mellitus without complications; G89.29 Other chronic pain; M54.9 Dorsalgia, unspecified; E78.00 Pure hypercholesterolemia, unspecified; S40.811A Abrasion of right upper arm, initial encounter; X58.XXXA Exposure to other specified factors, initial encounter; Z91.041 Radiographic dye allergy status; Z79.82 Long term (current) use of aspirin; Z79.4 Long term (current) use of insulin; Z79.899 Other long term (current) drug therapy; Z98.61 Coronary angioplasty status; Z87.891 Personal history of nicotine dependence; Z82.49 Family history of ischemic heart disease and other diseases of the circulatory system; Y93.89 Activity, other specified; Y92.89 Other specified places as the place of occurrence of the external cause; Y99.8 Other external cause status
CPT/HCPCS: 10078; 10081; 10183; 47000; 47001; 47002; 47297; 50010; 50249; 50382; 50409; 50456; 50497; 50668; 51301; 52131; 52190; 52314; 53327; 53358; 54118; 56524; 56525; 56526; 56527; 56528; 56529; 56531; 56534; 56639; 56668; 56760; 56898; 57093; 57096; 57126; 62110; 62950; 64029; 65002; 65003; 65020; 65043; 65047; 65090; 65120; 65135; 83006

== ENCOUNTER → 2017-08-16 | Outpatient (CLI) | payer BC ==
[~2017-08-16] MED LIST changes: +A AND D OINTM42.5 GM TOP; +ATORVASTATIN CA40 MG PO; +COLACE 100 MG100 MG PO; +HYDROCODON-ACE1 EAC7 PO; +PACERONE 200 M200 M1 PO; +SENNA8.6 MG PO; +TENORMIN50 MG PO; +VITAMIN D-32000 UNIT PO
== END ==
LOC: RAD 14:35
DX: I25.10 Atherosclerotic heart disease of native coronary artery without angina pectoris (principal); Z95.1 Presence of aortocoronary bypass graft

== ENCOUNTER → 2018-05-22 | Outpatient (CLI) | payer OTHER, BC | LOC: RAD 12:57 | DX: R07.89 Other chest pain (principal) ==

== ENCOUNTER → 2019-08-12 | Outpatient (CLI) | payer OTHER, BC | LOC: SJCVC 14:13 | PROVIDERS: ATTEND Internal Medicine | DX: R94.31 Abnormal electrocardiogram [ECG] [EKG] (principal); I25.810 Atherosclerosis of coronary artery bypass graft(s) without angina pectoris; I48.0 Paroxysmal atrial fibrillation; I10 Essential (primary) hypertension; E11.9 Type 2 diabetes mellitus without complications; E78.5 Hyperlipidemia, unspecified; Z79.4 Long term (current) use of insulin; Z79.01 Long term (current) use of anticoagulants; Z95.1 Presence of aortocoronary bypass graft; Z79.899 Other long term (current) drug therapy; Z79.84 Long term (current) use of oral hypoglycemic drugs; Z87.891 Personal history of nicotine dependence; Z82.49 Family history of ischemic heart disease and other diseases of the circulatory system ==

== ENCOUNTER → 2020-02-19 | Outpatient (CLI) | payer OTHER, BC | LOC: SJCVC 15:54 | PROVIDERS: ATTEND Internal Medicine | DX: R94.31 Abnormal electrocardiogram [ECG] [EKG] (principal); I25.10 Atherosclerotic heart disease of native coronary artery without angina pectoris; I48.0 Paroxysmal atrial fibrillation; I10 Essential (primary) hypertension; E78.5 Hyperlipidemia, unspecified; E11.9 Type 2 diabetes mellitus without complications; Z79.4 Long term (current) use of insulin; Z95.1 Presence of aortocoronary bypass graft; Z79.01 Long term (current) use of anticoagulants; Z79.899 Other long term (current) drug therapy ==

== ENCOUNTER → 2020-08-20 | Outpatient (CLI) | payer OTHER, BC | LOC: SJCVC 10:09 | PROVIDERS: ATTEND Internal Medicine | DX: I25.10 Atherosclerotic heart disease of native coronary artery without angina pectoris (principal); I48.0 Paroxysmal atrial fibrillation; I10 Essential (primary) hypertension; E78.5 Hyperlipidemia, unspecified; E11.9 Type 2 diabetes mellitus without complications; I65.23 Occlusion and stenosis of bilateral carotid arteries; Z79.4 Long term (current) use of insulin; Z95.1 Presence of aortocoronary bypass graft; Z79.01 Long term (current) use of anticoagulants; Z87.891 Personal history of nicotine dependence; Z79.899 Other long term (current) drug therapy; Z72.89 Other problems related to lifestyle ==

== ENCOUNTER → 2020-10-20 | Outpatient (CLI) | payer OTHER, BC | LOC: SJCVCIMAG 10-17 07:18 | PROVIDERS: ATTEND Internal Medicine | DX: I25.10 Atherosclerotic heart disease of native coronary artery without angina pectoris (principal) ==

== ENCOUNTER 2020-12-05 21:35 | Emergency (ER) | payer OTHER, BC ==
[~2020-12-05] VITALS: Ht 193 cm; Wt 93.9 kg
--- NOTE | ~2020-12-05 | EMS ---
[address] [address] EMS Patient Care Report Name: LIZZY KAISER Room #: DEP GISEL Hayes#: [id number] Admission: 12/05/20 Attend Phys: Discharge: 12/05/20 Date of : 54 Report #: [id number] THIS REPORT FOR: //name// Report Transmitted: 12/05/2020 22:55 EMS Care Summary [place], [place]/[facility] Incident [id number] @ 12/05/2020 20:47 Incident Location [address] [place], [place] [id number] Patient LIZZY KAISER Male, 70 Years 1950 Patient Address [address] [place], [place] [id number] Patient History Diabetes,Hypertension (HTN),Hyperlipidemia,Cardiac Condition - Other,Myocardial Infarction (PA), Patient Allergies Iodine, Chief Complaint syncope Disposition Transported No Lights/Moro Dispatch Reason Unconscious/Fainting Transported To [facility] Narrative pt states he took his insulin, ate dinner, had a beer and had just smoked a cigar. he came into the house, felt lightheaded and had a syncopal episode. he remembers sitting down on the floor just prior to episode. his called 911. we arrive to find him seated upright on floor, a&o, profusely diaphoretic. 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 he denies CP or SOB. he feels [address] [address] EMS Patient Care Report Name: LIZZY KAISER Room #: DEP [facility]#: [id number] Admission: 12/05/20 Attend Phys: Discharge: 12/05/20 Date of : 54 Report #: [id number] lightheaded and feels "much better " if he can be in a supine position. pt is bradycardic and hypotensive upon exam, while seated. tx, stair chair to cot, transport supine w/ legs elevated. VS WNL in that position, no other changes during transport, pt talkative and comfortable, states earlier symptoms had subsided. report to staff. Initial Vitals @21:03P: 49, @20:59P: 48, @21:02P: 42, @21:01P: 48, @21:13P: 57, @21:14P: 79,R: 18,BP: 127/78,SpO2: 98, @20:58P: 58,R: 18,BP: 74/51,Pain: 0/10,GCS: 15,Glucose: 80,SpO2: 97,Revised Trauma: 10,PA Suspected: false @21:28P: 77,R: 18,BP: 128/77,Pain: 0/10,GCS: 15,SpO2: 97,Revised Trauma: 12, Assessments @20:58MENTAL:Person Oriented,Place Oriented,Event Oriented,Time Oriented,SKIN:Diaphoresis,HEENT:Head/Face: No Abnormalities,LUNG SOUNDS:General: Vomiting,General: Nausea,ABDOMEN:General: Vomiting,General: Nausea,PELVIS//GI:EXTREMITIES:PULSE:NEURO:Other,@21:25MENTAL:SKIN:No Abnormalities,HEENT:LUNG SOUNDS:ABDOMEN:PELVIS//GI:EXTREMITIES:PULSE:NEURO: Impression Hypotension Procedures @21:0312-Lead ECGResponse: UnchangedSucceeded@21:013-Lead ECGResponse: Unchanged@21:15StretcherResponse: Unchanged@21:08Saline Lock 10cc (18 ga) Site: Hand-RightResponse: UnchangedSucceeded@20:58ALS AssessmentResponse: Unchanged@21:11StairchairResponse: Unchanged Timeline 20:45,Call Received 20:45,Dispatch Notified 20:47,Dispatched 20:48,En Route 20:56,On Scene 20:58,At Patient 20:58,ALS Assessment,Response: Unchanged 20:58,BP: 74/51 M,PULSE: 58,RR: 18 R,SPO2: 97 Ox,ETCO2: ,B,PAIN: 0,GCS: 15, 20:59,BP: / M,PULSE: 48,RR: R,SPO2: Ox,ETCO2: ,BG: ,PAIN: ,GCS: , 21:01,BP: / M,PULSE: 48,RR: R,SPO2: Ox,ETCO2: ,BG: ,PAIN: ,GCS: , 21:01,3-Lead ECG,Response: Unchanged [facility] [address] [place] [address] EMS Patient Care Report Name: LIZZY KAISER Room #: LIZA Hayes#: [id number] Admission: 12/05/20 Attend Phys: Discharge: 12/05/20 Date of : 54 Report #: [id number] 21:02,BP: / M,PULSE: 42,RR: R,SPO2: Ox,ETCO2: ,BG: ,PAIN: ,GCS: , 21:03,12-Lead ECG,Response: UnchangedSucceeded, 21:03,BP: / M,PULSE: 49,RR: R,SPO2: Ox,ETCO2: ,BG: ,PAIN: ,GCS: , 21:08,Saline Lock 10cc 18 ga Site: Hand-Right,Response: UnchangedSucceeded, 21:11,Stairchair,Response: Unchanged 21:13,BP: / M,PULSE: 57,RR: R,SPO2: Ox,ETCO2: ,BG: ,PAIN: ,GCS: , 21:14,BP: 127/78 M,PULSE: 79,RR: 18 R,SPO2: 98 Ox,ETCO2: ,BG: ,PAIN: ,GCS: , 21:15,Stretcher,Response: Unchanged 21:19,Depart Scene 21:28,BP: 128/77 M,PULSE: 77,RR: 18 R,SPO2: 97 Ox,ETCO2: ,BG: ,PAIN: 0,GCS: 15, 21:29,At Destination 21:45,Call Closed Disclaimer v1.1 Copyright 2020 [employer] This EMS Care Summary contains data elements from the applicable legal record (which may be displayed differently). It is designed to provide pertinent information for the following purposes: continuity of care, clinical quality, and state data reporting. The complete legal record is available to ED staff and administrators of the receiving hospital in [employer]'s Patient Tracker. All data is provided "as is."
[2020-12-05] MEDS ORDERED: ELIQUIS5 MG PO (21:42)
[2020-12-05] MEDS ORDERED: JARDIANCE25 MG PO (21:43)
[2020-12-05] MEDS ORDERED: COZAAR 25 MG TA25 M2 PO (21:44)
[2020-12-05] MEDS ORDERED: GLUMETZA500 (21:45)
[2020-12-05] MEDS ORDERED: FLOMAX0.4 MG PO (21:45)
[2020-12-05] MEDS ORDERED: SILDENAFIL CIT100 MG (21:45)
[2020-12-05] MEDS ORDERED: INSULIN AS100 UNIT/1 SUBQ (21:46)
[2020-12-05 21:58] LABS: ABSOLUTE NEUTROPHILS 4.2 thou/uL (1.4-8.2); BASOPHILS 0.6 % (0.0-2.0); EOSINOPHILS 1.8 % (0.0-3.0); HEMOGLOBIN 14.4 gm/dL (14.0-18.0); MCH 28.7 pg (26.0-34.0); MCHC 32.7 g/dL (28.0-37.0); MCV 87.7 fL (80.0-100.0); MONOCYTES 11.2 % (1.0-8.0); PLATELET COUNT 240 thou/uL (150-400); POLYS 51.4 % (36.0-66.0); RBC 5.02 mil/uL (4.50-6.00); RDW 16.6 % (10.5-14.5); WBC 8.3 thou/uL (4.0-11.0)
[2020-12-05 22:16] LABS: CALCIUM 8.9 mg/dL (8.5-10.1); CREATININE 1.1 mg/dL (0.7-1.3); POTASSIUM 3.7 mmol/L (3.5-5.1)
[2020-12-05 22:25] LABS: ALBUMIN 3.6 g/dL (3.4-5.0); DIRECT BILIRUBIN 0.1 mg/dL (<0.1-0.2); TOTAL BILIRUBIN 0.5 mg/dL (0.2-1.0); TOTAL PROTEIN 7.4 g/dL (6.4-8.2)
[2020-12-05 23:36] VITALS: BP 155/97
--- NOTE | 2020-12-06 13:41 | EKG ---
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 : 1950 Requested By: Alexis Aguayo Order Number: [id number] MD: Sabino Barker Measurements Intervals [place] Rate: 61 P: 34 GA: 152 QRS: 9 QRSD: 92 T: 3 QT: 427 QTc: 430 Interpretive Statements Sinus rhythm Borderline T wave abnormalities Compared to ECG 09/20/2017 09:29:20 Atrial fibrillation no longer present Ventricular premature complex(es) no longer present T-wave abnormality still present Electronically Signed On 12-06-2020 13:41:43 CDT by Sabino Barker [email or web address] <ELECTRONICALLY SIGNED> By: Sabino Barker MD, [facility] 12/06/20 1341 01 01 Sabino Barker MD, [facility] /EPI
== END 2020-12-05 23:45 | disposition home or self-care (01) ==
LOC: ER 21:35
PROVIDERS: Student in an Organized Health Care Education/Training Program
DX: E11.649 Type 2 diabetes mellitus with hypoglycemia without coma (principal); R55 Syncope and collapse; I10 Essential (primary) hypertension; Z91.041 Radiographic dye allergy status; Z79.899 Other long term (current) drug therapy; Z79.82 Long term (current) use of aspirin

== ENCOUNTER → 2020-12-07 | Outpatient (CLI) | payer OTHER, BC ==
[~2020-12-07] MED LIST changes: +COZAAR 25 MG TA25 M2 PO; +ELIQUIS5 MG PO; +FLOMAX0.4 MG PO; +GLUMETZA500; +INSULIN AS100 UNIT/1 SUBQ; +JARDIANCE25 MG PO; +SILDENAFIL CIT100 MG
== END ==
LOC: SJCVC 14:44
PROVIDERS: ATTEND Internal Medicine
DX: R94.31 Abnormal electrocardiogram [ECG] [EKG] (principal); I25.10 Atherosclerotic heart disease of native coronary artery without angina pectoris; I48.0 Paroxysmal atrial fibrillation; I65.23 Occlusion and stenosis of bilateral carotid arteries; I10 Essential (primary) hypertension; E78.5 Hyperlipidemia, unspecified; E11.9 Type 2 diabetes mellitus without complications; Z95.1 Presence of aortocoronary bypass graft; Z79.4 Long term (current) use of insulin; Z79.01 Long term (current) use of anticoagulants; Z79.899 Other long term (current) drug therapy; Z79.84 Long term (current) use of oral hypoglycemic drugs; Z88.8 Allergy status to other drugs, medicaments and biological substances; Z87.891 Personal history of nicotine dependence; Z72.89 Other problems related to lifestyle

== ENCOUNTER → 2021-04-22 | Outpatient (CLI) | payer OTHER, BC | LOC: SJCVC 09:53 | PROVIDERS: ATTEND Internal Medicine | DX: R94.31 Abnormal electrocardiogram [ECG] [EKG] (principal); I25.10 Atherosclerotic heart disease of native coronary artery without angina pectoris; I48.0 Paroxysmal atrial fibrillation; I65.23 Occlusion and stenosis of bilateral carotid arteries; E78.5 Hyperlipidemia, unspecified; I10 Essential (primary) hypertension; E11.9 Type 2 diabetes mellitus without complications; F12.10 Cannabis abuse, uncomplicated; Z79.01 Long term (current) use of anticoagulants; Z79.4 Long term (current) use of insulin; Z87.891 Personal history of nicotine dependence; Z72.89 Other problems related to lifestyle; Z88.8 Allergy status to other drugs, medicaments and biological substances; Z79.899 Other long term (current) drug therapy; Z82.49 Family history of ischemic heart disease and other diseases of the circulatory system ==